=== PATIENT | female | born 1970 | race Caucasian/White ===

== ENCOUNTER → 2019-06-01 11:02 | Outpatient (CLI) | payer OTHER, SELFPAY ==
--- NOTE | ~2019-06-01 | MM_ITS ---
EXAMINATION: MM screening [facility] BI w kia HISTORY: Screening mammogram TECHNIQUE: Craniocaudal and mediolateral oblique 3-D tomosynthesis images were obtained and synthetic 2-D images were generated. CAD analysis was submitted and interpreted. COMPARISON: 12/30/2017, 04/27/2014 BREAST PARENCHYMAL COMPOSITION: The breasts are heterogeneously dense, which may obscure small masses . FINDINGS: There is no evidence of suspicious mass, calcification, or architectural distortion to sugg est malignancy in either breast. There has been no suspicious interval change. IMPRESSION: 1. No mammographic evidence of malignancy. 2. Recommend routine screening mammography in one year. BI-RADS Category 1: Negative Reviewed, dictated and finalized at location A. PRESIDENT OF DEVELOPMENT
== END ==
PROVIDERS: PCP Nurse Practitioner Family; Visit Provider Nurse Practitioner Family
DX: Z12.31 Encounter for screening mammogram for malignant neoplasm of breast (principal)
CPT/HCPCS: 77063; 77067

== ENCOUNTER → 2019-07-13 12:51 | Outpatient (CLI) | payer OTHER, SELFPAY ==
--- NOTE | ~2019-07-13 | US_ITS ---
EXAMINATION: US pelvic complete EXAM DATE: 07/13/2019 13:16 INDICATION: Abnormal uterine bleeding, spotting. TECHNIQUE: Pelvic transabdominal sonogram was performed. There are multiple grayscale and Doppler im ages available for interpretation. There is no prior study for comparison. FINDINGS: Uterus measures 7.7 x 4.2 x 4.5 cm, and is morphologically normal. The endometrial stripe is 10 mm as estimated transabdominally, which is considered abnormally thickened for postmenopausal s tatus. Histologic correlation would be appropriate. There is no free pelvic fluid. Right adnexa: The ovary measures 2.4 x 1.8 x 2.3 cm and is morphologically normal. Ovarian vascular f low confirmed. Left adnexa: The ovary measures 1.6 x 1.2 x 1.6 cm and is morphologically normal. Ovarian vascular fl ow confirmed. IMPRESSION: Thickened endometrium for postmenopausal status, differential diagnosis including hyperpl lianna, cancer. Recommend SUMMONS SERVER consult for possible histologic correlation. Reviewed, dictated and finalized at location A. IMPRESSION: Thickened endometrium for postmenopausal status, differential diagn osis including hyperplasia, cancer. Recommend SUMMONS SERVER consult for possible histolog ic correlation.
== END ==
PROVIDERS: PCP Family Medicine; Visit Provider Family Medicine
DX: N93.9 Abnormal uterine and vaginal bleeding, unspecified (principal); R93.89 Abnormal findings on diagnostic imaging of other specified body structures
CPT/HCPCS: 76856

== ENCOUNTER 2019-09-10 10:02 | Outpatient (CLI) | payer OTHER, SELFPAY ==
--- NOTE | ~2019-09-10 | US_ITS ---
EXAMINATION: US pelvic complete w TV DATE: 09/10/2019 10:30 INDICATION: Abnormal uterine and vaginal bleeding, unspecified. Postmenopausal. TECHNIQUE: Multiple transabdominal and transvaginal sonographic images of the pelvis were obtained. COMPARISON: Ultrasound 07/13/2019 FINDINGS: TRANSABDOMINAL ULTRASOUND: The uterus measures 5.8 x 3.2 x 3.5 cm. There is no free fluid in the pelvis. TRANSVAGINAL ULTRASOUND: The endometrial complex measures 7 mm in thickness. The ovaries are not visualized. IMPRESSION: 1. Abnormally thickened endometrial complex. The differential diagnosis includes endometrial hyperpla liliane, polyp, and carcinoma. Biopsy is recommended. Reviewed, dictated and finalized at location A. IMPRESSION: 1. Abnormally thickened endometrial complex. The differential diagnosis include s endometrial hyperplasia, polyp, and carcinoma. Biopsy is recommended.
== END 2019-09-10 10:03 | disposition home or self-care (01) ==
PROVIDERS: PCP Family Medicine; Visit Provider Family Medicine
DX: N93.9 Abnormal uterine and vaginal bleeding, unspecified (principal)
CPT/HCPCS: 76830; 76856

== ENCOUNTER → 2019-12-07 10:35 | Outpatient (CLI) | payer OTHER, SELFPAY ==
--- NOTE | ~2019-12-07 | US_ITS ---
EXAMINATION: US transvaginal DATE: 12/07/2019 11:04 INDICATION: Postmenopausal bleeding Comparison:Ultrasound dated 09/10/2019 TECHNIQUE: Multiple transabdominal and endovaginal sonographic images of the pelvis performed. FINDINGS: The uterus measures 5.7 x 3.3 x 3.2 cm. The endometrial complex measures 2.6 mm. There is a 3 mm calcification of the myometrium. The right ovary measures 1.5 x 0.8 x 1.1 cm and the left ovary measures 1 x 0.8 x 1.1 cm. There are small follicles in each ovary. There is no free fluid in the pelvis. There are no abnormal masses seen on either side. IMPRESSION: 1. Unremarkable pelvic ultrasound. No evidence for endometrial thickening. Reviewed, dictated and finalized at location A.
== END ==
PROVIDERS: PCP Family Medicine; Visit Provider Family Medicine
DX: N95.0 Postmenopausal bleeding (principal)
CPT/HCPCS: 76830

== ENCOUNTER → 2020-06-07 12:33 | Outpatient (CLI) | payer OTHER, SELFPAY ==
--- NOTE | ~2020-06-07 | MM_ITS ---
EXAMINATION: MM screening [facility] BI w kia HISTORY: Screening mammogram TECHNIQUE: Craniocaudal and mediolateral oblique 3-D tomosynthesis images were obtained and synthetic 2-D images were generated. CAD analysis was submitted and interpreted. COMPARISON: Prior mammograms dating back to 08/14/2006 BREAST PARENCHYMAL COMPOSITION: The breasts are heterogeneously dense, which may obscure small masses . FINDINGS: There is no evidence of suspicious mass, calcification, or architectural distortion to sugg est malignancy in either breast. There has been no suspicious interval change. IMPRESSION: 1. No mammographic evidence of malignancy. 2. Recommend routine screening mammography in one year. BI-RADS Category 1: Negative Reviewed, dictated and finalized at location A. NING AND DEVELOPMENT COORDINATOR
== END ==
PROVIDERS: PCP Family Medicine; Visit Provider Obstetrics & Gynecology
DX: Z12.31 Encounter for screening mammogram for malignant neoplasm of breast (principal)
CPT/HCPCS: 77063; 77067

== ENCOUNTER → 2021-07-31 11:36 | Outpatient (CLI) | payer OTHER, SELFPAY ==
--- NOTE | ~2021-07-31 | MM_ITS ---
EXAMINATION: MM screening [facility] BI w kia HISTORY: Screening mammogram TECHNIQUE: Craniocaudal and mediolateral oblique 3-D tomosynthesis images were obtained and synthetic 2-D images were generated. CAD analysis was submitted and interpreted. COMPARISON: June 07, 2020, June 01, 2019 bilateral screening mammogram examinations BREAST PARENCHYMAL COMPOSITION: There are scattered areas of fibroglandular density. FINDINGS: Stable mild fibroglandular asymmetry. There is no evidence of suspicious mass, calcificatio n, or architectural distortion to suggest malignancy in either breast. There has been no suspicious i nterval change. IMPRESSION: 1. No mammographic evidence of malignancy. 2. Recommend routine screening mammography in one year. BI-RADS Category 2: Benign finding(s). Reviewed, dictated and finalized at location A.
== END ==
PROVIDERS: PCP Family Medicine; Visit Provider Family Medicine
DX: Z12.31 Encounter for screening mammogram for malignant neoplasm of breast (principal)
CPT/HCPCS: 77063; 77067

== ENCOUNTER → 2022-03-19 11:13 | Outpatient (CLI) | payer OTHER, SELFPAY ==
--- NOTE | ~2022-03-19 | DEXA_ITS ---
Bone Density Report Name: ALPESH PEREZ Age: 51 Sex: Female Ethnicity: White Date of : 1970 Indication: postmenopausal; screening for osteoporosis; height loss; Referring Provider: DRE PEREZ Study: Bone densitometry was performed. Exam Date: March 19, 2022 Accession number: [id number] Bone Density: Region BMD T-score Z-score Classification AP Spine (L1-L4) 0.680 -3.3 -2.4 Osteoporosis Femoral Neck (Left) 0.549 -2.7 -1.8 Osteoporosis Total Hip (Left) 0.662 -2.3 -1.7 Osteopenia Femoral Neck (Right) 0.539 -2.8 -1.8 Osteoporosis Total Hip (Right) 0.613 -2.7 -2.1 Osteoporosis Total Hip Mean 0.638 -2.5 -1.9 Osteoporosis World Health Organization criteria for BMD impression classify patients as: Normal (T-score at or above -1.0), Osteopenia (T-score between -1.0 and -2.5), or Osteoporosis (T-score at or below -2.5). 10-year Fracture Risk: FRAX not reported because: Some T-score for Spine Total or Hip Total or Femoral Neck at or below -2.5 Clinical Information Provided by Patient: Has 3 or more alcoholic drinks per day Has used the following medications: Vitamin D, MTV Patient maximum height was 65 Menopause Age: 46 No regular weight bearing exercise Drinks caffeinated beverages Onset of menses at age 10.5 Number of children 1 Impression: The patient has osteoporosis, based on the Total Spine T-score. The patient has risk factors, including: excessive alcohol use. Discussion: HIGH RISK OF FRACTURE. BONE DENSITY IS UNDESIRABLY LOW AT ONE OR MORE SKELETAL SITES, CONSISTENT WITH OSTEOPOROSIS. ALSO, BONE DENSITY IS LOWER THAN EXPECTED FOR AGE AND SEX AT ONE OR MORE SKELETAL SITES; RECOMMEND A DILIGENT SEARCH FOR SECONDARY CAUSES OF BONE LOSS. This patient's lowest T-score meets the World Health Organization's (WHO) criteria for osteoporosis at one or more sites (T-score -2.5 or below). In untreated patients, the risk of osteoporotic fracture increases approximately two-fold for each 1.0 SD decrease in T-score. Low bone density is not the only risk factor for fracture; also consider factors such as patient's age, frailty or poor health, risk of falling, risk of injury, previous osteoporotic fracture, family history of osteoporosis, cigarette smoking, low body weight, etc. Not everyone with low bone mineral density has osteoporosis; osteomalacia and other metabolic bone disorders should also be considered. Patients who have osteoporosis should be evaluated for specific diseases and conditions (secondary causes) that may cause or contribute to bone loss. The [place] Association of Clinical Endocrinologists (AACE) and National Osteoporosis Foundation (NOF) recommend pharmacologic intervention for all postmenopausal women whose T-score is in this range. Also, this patient's bone mineral density is belo
== END ==
PROVIDERS: PCP Family Medicine; Visit Provider Family Medicine
DX: Z78.0 Asymptomatic menopausal state (principal); M81.0 Age-related osteoporosis without current pathological fracture; M85.852 Other specified disorders of bone density and structure, left thigh
CPT/HCPCS: 77080

== ENCOUNTER → 2022-04-11 14:28 | Outpatient (CLI) | payer OTHER, SELFPAY ==
--- NOTE | ~2022-04-11 | CT_ITS ---
EXAMINATION: CT lung screening DATE: 04/11/2022 14:46 INDICATION: Lung cancer screening. Risk factor of tobacco use. TECHNIQUE: Computed tomography (CT) of the chest was performed without intravenous contrast. Addition al 3D reconstructions utilizing coronal maximum intensity projection (MIP) were performed. Automated exposure control and iterative reconstruction technique were employed. The dose-length product was 61 .46 mGy-cm. COMPARISON: None FINDINGS: Mild emphysema. A a few 2-3 mm nodules in the left upper lobe on series 4, image 29, right upper lobe on image 42 & 43 and in the left lower lobe on image 67. Mild discoid atelectasis at the inferior li ngula. No pneumonia, pulmonary edema or pleural effusion. Heart size is normal. Atherosclerotic coron alec artery calcific location. Thoracic aorta is normal in caliber. No pathologically enlarged thoraci c lymphadenopathy. Visualized upper abdomen and bones are unremarkable. IMPRESSION: 1. Lung-RADS category 2: Benign appearance or behavior. Continue annual screening with noncontrast lo w-dose chest CT in 12 months. Reviewed, dictated and finalized at location A. TECHNICIAN IMPRESSION: 1. Lung-RADS category 2: Benign appearance or behavior. Continue annual screeni ng with noncontrast low-dose chest CT in 12 months.
== END ==
PROVIDERS: PCP Family Medicine; Visit Provider Family Medicine
DX: Z12.2 Encounter for screening for malignant neoplasm of respiratory organs (principal); Z87.891 Personal history of nicotine dependence
CPT/HCPCS: 71271

== ENCOUNTER → 2022-06-19 11:45 | Outpatient (CLI) | payer OTHER, SELFPAY ==
--- NOTE | ~2022-06-19 | XR_ITS ---
XR_CERV2-3V_CR DATE: 06/19/2022 12:05 INDICATION: Left neck pain. No injury. TECHNIQUE: AP, open-mouth, lateral views COMPARISON: None FINDINGS: There is straightening of the cervical spine which may be due to muscle spasm. C1 and C2 ar e normally aligned and the odontoid process is intact. No fracture or dislocation or locked facet or prevertebral soft tissue swelling. Cervical interspaces are well preserved. Left neck calcifications likely involving the carotid bulb and proximal left internal carotid artery. IMPRESSION: Straightening of the cervical spine which may be due to muscle spasm Reviewed, dictated and finalized at Location A. Reviewed, dictated and finalized at location B. RONMENTAL SERVICES FLOOR TECH IMPRESSION: Straightening of the cervical spine which may be due to muscle spas m
--- NOTE | ~2022-06-19 | XR_ITS ---
XR shoulder LT min 2V DATE: 06/19/2022 12:05 INDICATION: Left shoulder pain. No injury. TECHNIQUE: 4 views COMPARISON: None FINDINGS: Aortic arch calcification is noted. Osteopenia. No fracture or dislocation, periosteal reaction or bone destruction of the left shoulder. Normal alig nment of the left acromioclavicular and glenohumeral joints. No abnormal left shoulder soft tissue ca lcification. IMPRESSION: Osteopenia Reviewed, dictated and finalized at location B. ER SERVICES REPRESENTATIVE IMPRESSION: Osteopenia
== END ==
PROVIDERS: PCP Family Medicine; Visit Provider Nurse Practitioner Gerontology
DX: M54.2 Cervicalgia (principal); M85.812 Other specified disorders of bone density and structure, left shoulder
CPT/HCPCS: 72040; 73030

== ENCOUNTER 2022-07-29 08:36 | Outpatient (CLI) | payer OTHER, SELFPAY ==
--- NOTE | 2022-07-29 08:38 | EST_ITS ---
Patient Info Name: Ирина Craft Age: 51 years : 1970 Gender: Female Ht: 66 in Wt: 145 lbs BSA: 1.76 m2 HR: 67 bpm BP: 155 / 83 mmHg Heart Rhythm: Sinus Rhythm Exam Date: 07/29/2022 8:47 AM Exam Location: [facility] Stress Patient Status: Outpatient Admit Date: 07/29/2022 Staff Ordering Physician: Justina Gonzalez NP Attending Provider: Justina Gonzalez NP Exercise Technologist: Sussy Bob CT Exercise Physician: Elder Brooks DO Exam Type: CA stress test treadmill Study Info Indications R53.83 - Other fatigue R06.02 - Shortness of breath A treadmill exercise stress test was performed. Summary 1. 1. Negative Fabrizio exercise stress test for ischemic ST changes by ECG criteria. 2. 2. Reduced functional capacity, achieving 7 METs of workload. 3. 3. Baseline hypertension with hypertensive response to exercise. 4. 4. Appropriate HR response to exercise. 5. 5. Appropriate HR recovery at 1 minute post exercise. 6. 6. No imaging with stress testing. 7. 7. Patient informed of the above results. Protocol: Fabrizio Stress ECG Details Stage: REST Duration (min): 1 min : 15 sec Speed (mph): 0.0 Grade (%): 0 HR (bpm): 63 SBP (mmHg): 155 DBP (mmHg): 83 METS: --- Stage: REST Duration (min): 9 min : 19 sec Speed (mph): 0.0 Grade (%): 0 HR (bpm): 71 SBP (mmHg): 155 DBP (mmHg): 83 METS: --- Stage: STAGE 1 Duration (min): 1 min : 0 sec Speed (mph): 1.7 Grade (%): 10 HR (bpm): 94 SBP (mmHg): 155 DBP (mmHg): 83 METS: --- Stage: STAGE 1 Duration (min): 2 min : 0 sec Speed (mph): 1.7 Grade (%): 10 HR (bpm): 104 SBP (mmHg): 155 DBP (mmHg): 83 METS: --- Stage: STAGE 1 Duration (min): 3 min : 0 sec Speed (mph): 1.7 Grade (%): 10 HR (bpm): 116 SBP (mmHg): 207 DBP (mmHg): 95 METS: --- Stage: STAGE 2 Duration (min): 1 min : 0 sec Speed (mph): 2.5 Grade (%): 12 HR (bpm): 124 SBP (mmHg): 207 DBP (mmHg): 95 METS: --- Stage: STAGE 2 Duration (min): 2 min : 0 sec Speed (mph): 2.5 Grade (%): 12 HR (bpm): 137 SBP (mmHg): 231 DBP (mmHg): 107 METS: --- Stage: STAGE 2 Duration (min): 2 min : 20 sec Speed (mph): 2.5 Grade (%): 12 HR (bpm): 144 SBP (mmHg): 231 DBP (mmHg): 107 METS: --- Stage: RECOVERY Duration (min): 0 min : 39 sec Speed (mph): 0.0 Grade (%): 0 HR (bpm): 133 SBP (mmHg): 231 DBP (mmHg): 107 METS: --- Stage: RECOVERY Duration (min): 1 min : 39 sec Speed (mph): 0.0 Grade (%): 0 HR (bpm): 110 SBP (mmHg): 231 DBP (mmHg): 107 METS: --- Stage: RECOVERY Duration (min): 2 min : 39 sec Speed (mph): 0.0 Grade (%): 0 HR (bpm): 89 SBP (mmHg): 234 DBP (mmHg): 108 METS: --- Stage: RECOVERY Duration (min): 3 min : 39 sec Speed (mph): 0.0 Grade (%):
--- NOTE | 2022-07-31 12:14 | WPDPFTINT ---
PFT Procedure Performed PFT Procedure Performed Plethysmography (Lung Vol) Diffusing Cap (DLCO) Flow Vol Loop Spirometry w/o Bronchodil PFT Interpretation DOS: 07/29/2022 REQUESTING: Justina Gonzalez NP REASON FOR TESTING: Shortness of breath PULMONARY FUNCTION TESTS Results are reliable and reproducible. Spirometry: FEV1 is 1.09 L, 38% predicted, severely reduced. FVC is 2.09 L, 57%, moderately reduced. FEV1/FVC ratio is 52%, reduced, consistent with airflow obstruction. No bronchodilator was administered. Lung volumes: Total lung capacity 5.79 L, 108% predicted, normal. Residual volume 3.15 L, 161% severely increased consistent with air trapping. Airway resistance 6.73pzF65/L/sec, 505%, elevated. Diffusion: DLCO 11.5, 50%, moderately decreased. DLCO/VA is 3.31, 74%, normal. Flow volume loop: Severe scooping of the expiratory limb. IMPRESSION: This study shows extremely severe obstructive ventilatory impairment with severe air trapping and moderate diffusion impairment that corrects for alveolar volume. No bronchodilator was administered. No prior studies for comparison. Felicia Mirza MD
== END 2022-07-29 08:37 | disposition home or self-care (01) ==
LOC: ANHCARD 08:37
PROVIDERS: PCP Family Medicine; Visit Provider Nurse Practitioner Gerontology
DX: R06.02 Shortness of breath (principal); J43.9 Emphysema, unspecified; R73.01 Impaired fasting glucose; R53.83 Other fatigue; E78.2 Mixed hyperlipidemia
CPT/HCPCS: 93017; 94375; 94726; 94729

== ENCOUNTER 2022-09-19 12:32 | Outpatient (CLI) | payer OTHER, SELFPAY ==
--- NOTE | 2022-09-19 16:58 | WPDSIXMINUTE ---
Six Minute Walk Procedure Procedure Performed Pulmonary Stress Test (6 min walk) Six Minute Walk Six Minute Walk: This is a 6 minute walk test. The test was performed and interpreted in accordance with the 2014 ERS/ATS task force guidelines. Findings: The patient's resting room air oxygen saturation measured by pulse oximetry was 97% and heart rate was 69 bpm. Patient ambulated for 427 meters and oxygen saturation remained 94 to 96%. Heart rate at the end of the study was 91 bpm. The patient did not qualify for supplemental oxygen at rest or with ambulation. There are no prior studies for comparison.
--- NOTE | 2022-09-19 16:59 | P.PCNPFT_ITS ---
PFT Procedure Performed PFT Procedure Performed Spirometry with Pre/Post Bronchodilator Flow Vol Loop PFT Interpretation This is a pulmonary function test with pre and post-bronchodilator spirometry. The test was performed and results interpreted in accordance with the 2019 and 2005 ATS/ERS Task Force guidelines respectively using the Global Lung Function Initiative-2012 reference equations. Patient demonstrated good effort and cooperation. Reproducibility criteria were met. The quality of the pre bron chodilator spirometry maneuver was Grade A and post bronchodilator spirometry maneuver was Grade A. Findings: Spirometry: There is decreased maximal expiratory airflow at all lung volumes with concave expiratory flow tracing. The pre bronchodilator FVC is 3.29 L, 90% predicted. The pre bronchodilator FEV1 is 1.46 L, 51% predicted. The pre bronchodilator FEV1: FVC ratio is 44%. The post bronchodilator FVC is 3.36 L, representing a 2% increase. The post bronchodilator FEV1 is 1.51 L, representing a 4% increase. The post bronchodilator FEV1: FVC ratio is 45%. In comparison to previous pulmonary function testing on 07/29/2022 in which only pre bronchodilator spirometry was performed the pre bronchodilator FVC has increased from 2.09 L to 3.29 L. the pre bronchodilator FEV1 has increased from 1.09 L to 1.46 L. Impression: There is a moderately severe obstructive abnormality without significant improvement after inhaling a single dose of albuterol. A concurrent restrictive ventilatory abnormality cannot be excluded as lung volumes were not measured. In comparison to previous pulmonary function testing on 07/29/2022 there has been a greater than anticipated time dependent increase in the FVC and FEV1. Clinical correlation is recommended.
== END 2022-09-19 12:33 | disposition home or self-care (01) ==
PROVIDERS: PCP Family Medicine; Visit Provider Internal Medicine Pulmonary Disease
DX: J44.9 Chronic obstructive pulmonary disease, unspecified (principal); Z87.891 Personal history of nicotine dependence; R94.2 Abnormal results of pulmonary function studies
CPT/HCPCS: 94060; 94618

== ENCOUNTER → 2022-10-17 15:18 | Outpatient (CLI) | payer OTHER, SELFPAY ==
--- NOTE | ~2022-10-17 | MM_ITS ---
EXAMINATION: MM screening [facility] BI w kia HISTORY: Screening mammogram TECHNIQUE: Craniocaudal and mediolateral oblique 3-D tomosynthesis images were obtained and synthetic 2-D images were generated. CAD analysis was submitted and interpreted. COMPARISON: 07/31/2021, 06/07/2020, 06/01/2019 BREAST PARENCHYMAL COMPOSITION: The breasts are heterogeneously dense, which may obscure small masses . FINDINGS: No suspicious mass, calcification, or architectural distortion are identified in either timmy ast to suggest malignancy. There has been no suspicious interval change. IMPRESSION: 1. No mammographic evidence of malignancy. 2. Recommend routine screening mammography in one year. BI-RADS Category 1: Negative Reviewed, dictated and finalized at location A.
== END ==
PROVIDERS: PCP Family Medicine; Visit Provider Family Medicine
DX: Z12.31 Encounter for screening mammogram for malignant neoplasm of breast (principal)
CPT/HCPCS: 77063; 77067

== ENCOUNTER 2022-11-11 09:20 | Observation (INO) | payer OTHER, SELFPAY ==
[2022-11-11] VITALS (11 sets, daily range): BP systolic 110–139; BP diastolic 65–77; PULSE 63–83; RESP 10–28; TEMP 36.5–36.6; O2SAT 95–100
--- NOTE | 2022-11-11 | ECHO_ITS ---
Patient Info Name: Ирина Craft Age: 52 years : 1970 Gender: Female Ht: 66 in Wt: 141 lbs BSA: 1.73 m2 HR: 68 bpm BP: 130 / 69 mmHg Heart Rhythm: Sinus Rhythm Technical Quality: Fair Exam Date: 11/11/2022 4:16 PM Exam Location: [facility] Pulmonary Exam Room: [facility] Patient Status: Outpatient Admit Date: 11/11/2022 Staff Ordering Physician: Ama Stark NP Court Abstractor: Blessing Frederick RDCS Attending Provider: Gui Lock MD Referring Physician: Lincoln TOTH; Exam Type: CA echo doppler w bubble study Study Info Indications - TIA Complete two-dimensional, color flow and Doppler transthoracic echocardiogram is performed with agitated saline. Contrast/Agitated Saline Contrast/Ag. Saline: Agitated Saline Amount: 20.00 ml Existing IV Access: Yes IV Access Condition: patent with no signs of infiltration Summary 1. Normal left ventricular size thickness with good contractility of all segments. Ejection fraction 60-65%. Normal diastolic function. 2. Left atrial chamber dimension is mildly enlarged. 3. No evidence of intracardiac shunting during normal respiration and Valsalva maneuver with bubble study. 4. No significant valve disease. 5. No pulmonary hypertension, estimated pulmonary arterial systolic pressure is 30 mmHg. 6. Normal sinus rhythm. Left Ventricle Left ventricular chamber dimension is normal. Left ventricular systolic function is normal, estimated at 60-65%. There is no increased left ventricular wall thickness. Left ventricular septal wall motion is normal. The left ventricular diastolic function is normal. Right Ventricle Right ventricular chamber dimension is normal. Right ventricular systolic function is normal. Left Atria Left atrial chamber dimension is mildly enlarged. Right Atria Right atrial chamber dimension is normal. Aortic Valve The aortic valve is trileaflet. There is no aortic valve sclerosis. There is no aortic valve stenosis. There is no aortic valve regurgitation. Pulmonic Valve The pulmonic valve is normal. There is no pulmonic valve stenosis. There is no pulmonic regurgitation. Mitral Valve The mitral valve has normal leaflets. There is no mitral valve stenosis. There is trace mitral valve regurgitation. Tricuspid Valve The tricuspid valve leaflets are normal. There is no significant tricuspid valve stenosis. There is trace tricuspid valve regurgitation. No pulmonary hypertension, estimated pulmonary arterial systolic pressure is 30 mmHg. Pericardium/Pleural The pericardium appears normal. There is no pericardial effusion. Inferior Vena Cava Normal inferior vena cava with >50% collapse upon inspiration consistent with Empty right atrial pressure, 10 mmHg. Aorta The aortic root size at the sinus of Valsalva is normal. The prox ascending aorta size is normal. Left Ventricular Outflow Tract Name Value Normal LVOT 2D LVOT Diameter 2.0 cm LVOT Doppler LVOT Peak Gradient 4 mmHg LVOT Mean Gradient 2 mmHg LVOT VTI 25 cm LVOT VTI/AV VTI Ratio 1.0
--- NOTE | ~2022-11-11 | XR_ITS ---
EXAMINATION: XR chest 1V DATE: 11/11/2022 10:12 INDICATION: Shortness of breath. TECHNIQUE: A single frontal view of the chest was obtained. COMPARISON: Chest 2 views 09/03/2018, chest CT 04/11/2022 FINDINGS: The lungs are hyperexpanded with lucencies, consistent with emphysema. No pneumonia, pleura l effusion, or pneumothorax. The heart size is normal. There are prominent paracardial fat pads. IMPRESSION: 1. Emphysema. Reviewed, dictated and finalized at location A. IMPRESSION: 1. Emphysema.
--- NOTE | ~2022-11-11 | CT_ITS ---
EXAMINATION: CT brain wo con DATE: 11/11/2022 10:08 INDICATION: Left arm paresthesias TECHNIQUE: Computed tomography (CT) of the head was performed without intravenous contrast. Sagittal and coronal reconstructions were performed. The mA was adjusted according to patient size. Iterative reconstruction technique was employed. The dose-length product was 529.67 mGy-cm. COMPARISON: head CT dated 04/27/2007 FINDINGS: No acute intracranial hemorrhage, acute infarction or abnormal extra axial fluid collection. Ventricl es are normal and symmetric. No mass/mass effect. There is opacification of the posterior right ethmo id air cell. The orbits and mastoid air cells are normal. IMPRESSION: 1. Normal brain. No acute intracranial process. Reviewed, dictated and finalized at location B.
--- NOTE | ~2022-11-11 | MR_ITS ---
EXAMINATION: MR brain/brain stem wo con DATE: 11/12/2022 08:16 INDICATION: Left upper extremity paresthesias. TECHNIQUE: Magnetic resonance imaging (MRI) of the brain and brainstem was performed without intraven ous contrast. COMPARISON: Head CT 11/11/2022 FINDINGS: There are scattered areas of nonspecific increased T2-weighted signal intensity in the cere bral white matter. There is no intracranial hemorrhage, acute infarction, or abnormal intracranial ma ss lesion. The ventricles are normal in size. 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 Th ere is mild mucosal thickening in the ethmoid sinuses. The orbits are normal. The mastoid air cells a re normal. IMPRESSION: 1. Mild nonspecific cerebral white matter disease, which likely represents chronic small vessel ische lucas disease. Reviewed, dictated and finalized at location A. IMPRESSION: 1. Mild nonspecific cerebral white matter disease, which likely represents punch machine hand luciano small vessel ischemic disease.
--- NOTE | ~2022-11-11 | MR_ITS ---
EXAMINATION: MR cervical spine wo/w con DATE: 11/12/2022 08:16 INDICATION: Left upper extremity paresthesias. TECHNIQUE: Magnetic resonance imaging (MRI) of the cervical spine was performed without intravenous c ontrast. Sequences included sagittal T2-weighted FSE, sagittal T2-weighted FS FSE, sagittal T1-weight ed FSE, axial MERGE, and axial T2-weighted FSE. COMPARISON: None FINDINGS: Bone alignment is normal. Vertebral body heights and intervertebral disc heights are normal . The spinal cord signal intensity is normal. The following disc levels are specifically discussed: C2-C3: The disc does not extend beyond the endplate margin. There is no uncovertebral joint osteoarth ritis. There is severe bilateral facet joint osteoarthritis. There is mild right neural foraminal beatrice nosis. There is no central canal stenosis. C3-C4: The disc does not extend beyond the endplate margin. There is mild left uncovertebral joint os teoarthritis. There is severe left facet joint osteoarthritis. There is no neural foraminal stenosis. There is no central canal stenosis. C4-C5: There is a central protrusion. There is no uncovertebral joint osteoarthritis. There is modera te right and severe left facet joint osteoarthritis. There is mild left neural foraminal stenosis. Th ere is no central canal stenosis. C5-C6: There is a central protrusion. There is mild bilateral uncovertebral joint osteoarthritis. The re is moderate right and severe left facet joint osteoarthritis. There is mild bilateral neural jannette inal stenosis. There is no central canal stenosis. C6-C7: There is a left central protrusion. There is mild left uncovertebral joint osteoarthritis. The re is moderate right and severe left facet joint osteoarthritis. There is mild left neural foraminal stenosis. There is no central canal stenosis. C7-T1: The disc does not extend beyond the endplate margin. There is severe bilateral uncovertebral j oint osteoarthritis. There is mild bilateral facet joint osteoarthritis. There is no neural foraminal stenosis. There is no central canal stenosis. IMPRESSION: 1. Mild cervical spondylosis. 2. Normal spinal cord. Reviewed, dictated and finalized at location A.
--- NOTE | ~2022-11-11 | US_ITS ---
Procedure: Duplex Doppler examination of the bilateral carotids. Indication: TIA Technique: Real time, color-flow and pulse wave Doppler examination of the bilateral carotids was performed. Findings: Patiño scale ultrasonography of the right neck demonstrated moderate calcified plaque at the mid to dis mary right common carotid artery. There was demonstration of normal color-flow and Doppler waveforms w ithin the right common, internal and external carotid arteries. The peak systolic velocities in the r ight common, internal and external carotid arteries were demonstrated to be 112 cm/sec, 94 cm/sec and 121 cm/sec respectively. The right ICA/CCA ratio was 0.8.The proximal right internal carotid artery demonstrates 0% stenosis relative to the normal distal artery lumen diameter. Patiño scale sonography of the left neck demonstrated extensive moderate plaques throughout the mid to distal left common carotid artery, with moderate to large plaques at the left carotid bulb and proxim al left internal carotid artery.. There was demonstration of normal color-flow and wave forms within the left common, internal and external carotid arteries. The peak systolic velocities in the left com mon, internal and external carotid arteries were demonstrated to be 118cm/sec, 172 cm/sec and 209 cm/ sec respectively. The left ICA/CCA ratio was 1.5. The proximal left internal carotid artery demonstra petros 50-69% stenosis relative to the normal distal artery lumen diameter. There was antegrade flow demonstrated in the bilateral vertebral arteries. Impression: Moderate grade (50-69%) stenosis of the proximal left internal carotid artery. Antegrade flow in the bilateral vertebral arteries. Note: The methodology used is an indirect measurement validated against a direct method (such as the NASCET criteria) that compares diameters at the stenosis to the distal ICA. Reviewed, dictated and finalized at location M. Impression: Moderate grade (50-69%) stenosis of the proximal left internal carotid artery. Antegrade flow in the bilateral vertebral arteries. Note: The methodology used is an indirect measurement validated against a direct meth od (such as the NASCET criteria) that compares diameters at the stenosis to the distal ICA.
--- NOTE | 2022-11-11 09:55 | PC.NURSE ---
Pt to xray.
--- NOTE | 2022-11-11 09:56 | ECG_ITS ---
Measurements Intervals [place] Rate: 60 P: 55 WV: 159 QRS: 61 QRSD: 80 T: 67 QT: 419 QTc: 421 Interpretive Statements SINUS RHYTHM RSR' IN V1 OR V2, PROBABLY NORMAL VARIANT BASELINE ARTIFACT- AVR, AVL, AVF NORMAL ECG NO PREVIOUS ECG AVAILABLE FOR COMPARISON Electronically Signed On 11-11-2022 11:22:26 CDT by Elder Brooks D.O.
--- NOTE | 2022-11-11 09:58 | ED.EXTPRO ---
HPI - Extremity Problem General Chief complaint: Extremity Problem,Nontraumatic <Dayana Yu PA-C - Last Filed: 11/11/22 18:50> Stated complaint: L ARM TINGLING THIS AM <Dayana Yu PA-C - Last Filed: 11/11/22 18:50> Time Seen by Provider: 11/11/22 09:42 <Dayana Yu PA-C - Last Filed: 11/11/22 18:50> History of Present Illness HPI Narrative: 52-year-old female with a history of COPD and left frozen shoulder reports for evaluation of left shoulder paresthesias since 7 AM this morning. Patient states she has tingling from her shoulder all the way down her entire left upper extremity with tingling to all of her fingers. States she has never had anything like this before and feels off . She does report she has recently been through PT for frozen shoulder of her left shoulder, however has not experienced the symptoms prior. She denies any pain in her shoulder, arm, neck, back, head. She is also reporting dyspnea, however states she was recently diagnosed with COPD which the dyspnea may be related to. She denies chest pain, cough or congestion, abdominal pain, weakness, skin changes, dysarthria or dysphagia, ataxia, dizziness, headache. <Dayana Yu PA-C - Last Filed: 11/11/22 18:50> Related Data Home medications: Home Medications Medication Instructions Recorded Confirmed atenolol 50 mg tablet 50 mg PO HS 11/11/22 11/11/22 atorvastatin 10 mg tablet 10 mg PO HS 11/11/22 11/11/22 nifedipine 30 mg tablet,extended 30 mg PO HS 11/11/22 11/11/22 release 24 hr omeprazole 40 mg capsule,delayed 40 mg PO HS 11/11/22 11/11/22 release <DUSTIN Box Last Filed: 11/11/22 18:50> Allergies/Adverse reactions: Allergies Allergy/AdvReac Type Severity Reaction Status Date / Time No Known Allergies Allergy Verified 11/11/22 09:52 <DUSTIN Box Last Filed: 11/11/22 18:50> Review of Systems Review of Systems: CONSTITUTIONAL: Denies fever, chills EYES: Denies visual changes, redness, or discharge. ENT: Denies rhinorrhea, congestion, sore throat, or otalgia. CARDIOVASCULAR: Denies chest pain, palpitations, or edema. RESPIRATORY: Denies cough or dyspnea. GASTROINTESTINAL: Denies abdominal pain, nausea, vomiting, or diarrhea. GENITOURINARY: Denies dysuria or hematuria. SKIN: Denies rash or itching. MUSCULOSKELETAL: Denies back pain, joint pain, or myalgia. NEUROLOGIC: See HPI PSYCHIATRIC: Denies anxiety or depression. <Dayana Yu PA-C - Last Filed: 11/11/22 18:50> [facility] Past Medical History Medical History: Medical History Abnormal endometrial ultrasound Annual physical exam Dysuria Encounter for vitamin deficiency screening Essential (primary) hypertension GERD with esophagitis HH (hiatus hernia) History of tobacco use Menopause syndrome Mixed hyperlipidemia Neck pain Pap smear for cervical cancer screening Postmenopausal Screening-pulmonary TB Shoulder pain Sty, internal Weight gain finding Wellness examination <Dayana Yu PA-C - Last Filed: 11/11/22 18:50> Surgical History Surgical History: Surgical History (Updated 11/11/22 @ 14:01 by Ama Stark NP) History of tonsillectomy and adenoidectomy <Dayana Yu PA-C - Last Filed: 11/11/22 18:50> Family History Family History: Family History Father Hypertension Family history of diabetes mellitus in first degree relative Family history of pancreatic disease Mother , unknown, possible heart disease Hypertension Family history of diabetes mellitus in first degree relative Family history of Alzheimer's disease, Onset Age: 65 Sibling Hypertension Family history of diabetes mellitus in first degree relative <Dayana Yu PA-C - Last Filed: 11/11/22 18:50> Social History Social History: Social
[2022-11-11 10:32] LABS: Basophils Absolute Auto 0.1 K/mm3 (0.0-0.1); Basophils Percent Auto 1.2 % (0.2-1.2); Eosinophils Absolute Auto 0.2 K/mm3 (0-0.3); Eosinophils Percent Auto 2.7 % (0-4.4); Hematocrit 44.3 % (37.0-47.0); Hemoglobin 14.7 g/dL (12.0-15.0); Immature Granulocyte Absolute 0.02 K/mm3 (0.00-0.031); Immature Granulocyte Percent A 0.3 % (0-0.5); Lymphocytes Percent Auto 23.9 % (18.3-44.2); Mean Corpuscular HGB Conc 33.2 g/dl (32-36); Mean Corpuscular Hemoglobin 29.8 pg (26-34); Mean Corpuscular Volume 89.7 fl (80-100); Monocytes Absolute Auto 0.6 K/mm3 (0.1-0.6); Monocytes Percent Auto 9.3 % (2.6-8.5); Neutrophils Absolute Auto 4.2 K/mm3 (1.3-6.7); Neutrophils Percent Auto 62.6 % (45.5-73.1); Platelet Count Result 298 k/mm3 (150-375); Red Blood Count 4.94 M/mm3 (4.2-5.4); Red Cell Distribution Width 12.9 % (11.5-14.5); White Blood Count 6.7 K/mm3 (4.5-10.0)
[2022-11-11 10:45] LABS: Alanine Aminotransferase 28 U/L (6-35); Albumin Level 4.6 g/dL (3.5-5.1); Alkaline Phosphatase 98 U/L (38-126); Anion Gap 8 mmol/L (8-16); Aspartate Amino Transferase 37 U/L (14-36); Bilirubin,Total 0.3 mg/dL (0.2-1.3); Blood Urea Nitrogen 11 mg/dL (7-17); Calcium 8.8 mg/dL (8.4-10.2); Carbon Dioxide 25 mmol/L (22-30); Chloride 104 mmol/L (98-107); Estimated Glomerular Filt Rate > 60; Glucose 111 mg/dL (65-110); Sodium 137 mmol/L (137-145)
[2022-11-11 10:46] LABS: INR 0.9; Prothrombin Time 12.3 Seconds (11.1-14.7)
[2022-11-11 10:47] LABS: Partial Thromboplastin Time 27.1 SECONDS (22.3-36.8)
[2022-11-11 10:55] LABS: Appearance Urine Clear (Clear); Bacteria Urine None Seen /hpf; Bilirubin Urine Negative (Negative); Blood Urine Negative (Negative); Color Urine Yellow (Yellow); Glucose Urine UA Negative (Negative); Ketones Urine Negative (Negative); Leukocyte Esterase Ur Trace LEU/UL (Negative); Nitrate Urine Negative (Negative); Non Pathogenic Casts 0-2; Protein Urine Negative (Negative); RBC Urine 0-2 /hpf (0-2); Specific Grav Ur 1.005 (1.001-1.035); Squamous Epithelial Cell Urine None seen /hpf (Few); Urobilinogen Urine 0.2 mg/dL (<2.0); WBC Urine 0-5 /hpf
[2022-11-11 10:56] LABS: Add Urine Microscopic? YES
[2022-11-11 10:57] LABS: Troponin I < 0.012 ng/mL (0.000-0.034)
[2022-11-11 11:02] LABS: D Dimer < 0.27 ug/mL (<0.48)
[2022-11-11] MEDS: ASPIRIN 81 MG CHEWABLE TABLET 324 MG PO (11:56)
--- NOTE | 2022-11-11 13:57 | PM.IMHP ---
H&P: HPI History of Present Illness Date/Time: 11/11/22 13:57 Chief Complaint: Left arm tingling Narrative: This is a 52-year-old female patient has had no prior history of TIAs or CVAs. She has a history of hypertension and hyperlipidemia. The patient stated when she woke up this morning she had felt like she had numbness and tingling to her left forearm. The tingling is from her left upper extremity and and set her finger tips. The patient has been through physical therapy in the past due to frozen shoulder. However she has not experienced anything to this degree in the past. She denies having any COPD. She denies taking any new medication. Patient is moving all extremities without difficulty no facial droop no pronator drifting. Patient has no complaints of any dizziness or headache. Glucose is 111. Troponin is negative. Urine is negative. Chest x-ray was read as emphysema. Head CT was read as normal brain no acute intracranial process. The patient stated that she is not taking any medication to help with the situation. The study that makes it worse or better. The patient stated feels as if she is late on that side in arm fell asleep. The patient is being admitted to observation status on the date of service of 11/11/2022 Review of Systems Review of Systems: All systems reviewed & are unremarkable except as noted in HPI and below Constitutional: Constitutional: Reports as per HPI and Reports no additional constitutional complaints Eyes: Eyes: Reports as per HPI and Reports no additional eye complaints ENT: Reports system reviewed and no additional complaints, except as documented and Reports Normal hearing present Cardiovascular: Cardiovascular: Reports no additional cardiovascular complaints Respiratory: Respiratory: Reports no additional respiratory complaints and Reports no additional respiratory complaints Gastrointestinal: Gastrointestinal: Reports as per HPI and Reports no additional gastrointestinal complaints Musculoskeletal: Musculoskeletal: Reports no additional musculoskeletal complaints Integumentary/Breasts: Skin/Breast: Reports system reviewed and no additional complaints, except as docu and Reports as per HPI Neurologic: Reports system reviewed and no additional complaints, except as documented, Reports as per HPI and Reports Normal hearing present Psychiatric: Psychiatric: Reports no additional psychiatric complaints and Reports as per HPI Endocrine: Endocrine: Reports no additional endocrine complaints Hematologic/Lymphatic: Hematologic/Lymphatic: Reports no additional hematologic/lymphatic complaints Allergic/Immunologic: Allergic/Immunologic: Reports no additional allergic/immunologic complaints [facility] Past Medical History Medical History Abnormal endometrial ultrasound Annual physical exam Dysuria Encounter for vitamin deficiency screening Essential (primary) hypertension GERD with esophagitis HH (hiatus hernia) History of tobacco use Menopause syndrome Mixed hyperlipidemia Neck pain Pap smear for cervical cancer screening Postmenopausal Screening-pulmonary TB Shoulder pain Sty, internal Weight gain finding Wellness examination Surgical History Surgical History (Updated 11/11/22 @ 14:01 by Ama Stark NP) History of tonsillectomy and adenoidectomy Family History Family History Father Hypertension Family history of diabetes mellitus in first degree relative Family history of pancreatic disease Mother , unknown, possible heart disease Hypertension Family history of diabetes mellitus in first degree relative Family history of Alzheimer's disease, Onset Age: 65 Sibling Hypertension Family history of diabetes mellitus in first degree relative Social History Social History (Updated 11/11/22 @ 17:00 by Ama Stark NP) Social History: She
--- NOTE | 2022-11-11 15:48 | ADMGEN ---
This patient, Ирина Craft, was admitted to [facility] Room 316-02. Patient/family oriented to hospital policies and general routines including ID bracelet, bed and alarms, visiting hours, pain management, procedures, bathroom and other care routines, personal items, smoking policy, room service/diet, and visiting hours. Information on how to activate the Rapid Response Team has been discussed. Patient/Family are encouraged to report perceived risks to care and to ask questions if they do not understand what they are told or what they should do.
[2022-11-11] MEDS: atenoloL 50 MG TABLET PO (21:28)
[2022-11-11] MEDS: PANTOPRAZOLE 40 MG TABLET PO (21:28)
[2022-11-11] MEDS: NIFEdipine 30 MG TAB.ER.24 PO (21:28)
[2022-11-11] MEDS: ATORVASTATIN 10 MG TABLET PO (21:29)
[2022-11-12 04:55] VITALS: BP 138/77; PULSE 61; RESP 14; TEMP 36.4; O2SAT 98
[2022-11-12 06:29] LABS: Basophils Absolute Auto 0.1 K/mm3 (0.0-0.1); Basophils Percent Auto 0.9 % (0.2-1.2); Eosinophils Absolute Auto 0.3 K/mm3 (0-0.3); Eosinophils Percent Auto 3.6 % (0-4.4); Hematocrit 43.4 % (37.0-47.0); Hemoglobin 13.9 g/dL (12.0-15.0); Immature Granulocyte Absolute 0.02 K/mm3 (0.00-0.031); Immature Granulocyte Percent A 0.3 % (0-0.5); Lymphocytes Absolute Auto 2.19 K/mm3 (0.9-3.2); Lymphocytes Percent Auto 31.4 % (18.3-44.2); Mean Corpuscular Volume 90.4 fl (80-100); Mean Platelet Volume 9.1 fl (7.4-10.4); Monocytes Absolute Auto 0.6 K/mm3 (0.1-0.6); Neutrophils Absolute Auto 3.8 K/mm3 (1.3-6.7); Neutrophils Percent Auto 54.8 % (45.5-73.1); Platelet Count Result 284 k/mm3 (150-375); Red Cell Distribution Width 12.7 % (11.5-14.5)
[2022-11-12 06:41] LABS: Alanine Aminotransferase 25 U/L (6-35); Alkaline Phosphatase 73 U/L (38-126); Anion Gap 4 mmol/L (8-16); Aspartate Amino Transferase 34 U/L (14-36); Bilirubin,Total 0.6 mg/dL (0.2-1.3); Blood Urea Nitrogen 8 mg/dL (7-17); Calcium 8.5 mg/dL (8.4-10.2); Carbon Dioxide 24 mmol/L (22-30); Chloride 105 mmol/L (98-107); Estimated Glomerular Filt Rate > 60; Glucose 98 mg/dL (65-110); Magnesium 2.2 mg/dL (1.6-2.3); Potassium 3.7 mmol/L (3.4-5.0); Sodium 133 mmol/L (137-145)
[2022-11-12] MEDS: LORazepam INJ (*CRX) 2 MG/ML VIAL 1 MG IV PUSH (07:16)
[2022-11-12 07:25] VITALS: PULSE 75; RESP 18; O2SAT 96
[2022-11-12] MEDS: UMECLIDINIUM/VILANTEROL 62.5-25 MCG ELLIPTA 2 PUFF INHALATION (07:25)
--- NOTE | 2022-11-12 08:46 | PM.IMPN ---
Progress Note: A&P Assessment and Plan (1) Paresthesia of upper extremity: Code(s): R20.2 - Paresthesia of skin Status: Acute Assessment and Plan: Neurology has been consulted. The patient has no focal weakness. Cervical spine MRI, MRI of the brain, carotid ultrasound and echo has been ordered. Neurology has been consulted. Continue with aspirin daily. 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 Continue with stiolto Respimat. (3) Mixed hyperlipidemia: Code(s): E78.2 - Mixed hyperlipidemia Status: Acute Assessment and Plan: Continue with atorvastatin (4) GERD with esophagitis: Code(s): K21.0 - Gastro-esophageal reflux disease with esophagitis Status: Acute Assessment and Plan: Continue with omeprazole (5) Essential (primary) hypertension: Code(s): I10 - Essential (primary) hypertension Status: Acute Assessment and Plan: Continue with nifedipine and atenolol. Current blood pressure 123/77. Subjective Date/time seen: 11/12/22 08:46 Interval history: Chief Complaint: Left arm tingling Narrative: This is a 52-year-old female patient has had no prior history of TIAs or CVAs.? She has a history of hypertension and hyperlipidemia.? The patient stated when she woke up this morning she had felt like she had numbness and tingling to her left forearm.? The tingling is from her left upper extremity and and set her finger tips.? The patient has been through physical therapy in the past due to frozen shoulder.? However she has not experienced anything to this degree in the past.? She denies having any COPD.? She denies taking any new medication.? Patient is moving all extremities without difficulty no facial droop no pronator drifting.? Patient has no complaints of any dizziness or headache.? Glucose is 111.? Troponin is negative.? Urine is negative.? Chest x-ray was read as emphysema.? Head CT was read as normal brain no acute intracranial process.? The patient stated that she is not taking any medication to help with the situation.? The study that makes it worse or better.? The patient stated feels as if she is late on that side in arm fell asleep.? The patient is being admitted to observation status on the date of service of 11/11/202211/12: patient seen resting in bed appears well. She had a difficult night overnight because of her roommate. She says that she has just minimal tingling to her left hand now. denies any other neuro symptoms. She is anxious to leave. clarifying with Neurology if CTA needs to be completed prior to discharge. She will need outpatient EMG nerve conduction study to rule out possible brachial plexopathy. Review of Systems Review of Systems: All systems reviewed & are unremarkable except as noted in HPI and below Exam Narrative: General: well-nourished, well-appearing 52-year-old female, sitting up in bed, comfortable, NARD Neuro: awake, alert and oriented x4, speech clear, no focal neuro deficits noted, tingling present to left hand but is resolving HEENMT: normocephalic, atraumatic, EOMI, sclerae anicteric, moist oral mucosa Respiratory: Clear to auscultation bilaterally without crackles, rhonchi or wheezes, nonlabored breathing Cardio: regular rate, regular rhythm with S1-S2 Abdomen: nondistended, normoactive bowel sounds, soft, nontender to palpation Extremities: no edema, erythema, or tenderness to palpation, DP pulses 2+ bilaterally Skin: no rashes or lesions, warm and dry Psych: appropriate mood and affect, judgment a
[2022-11-12] MEDS: ASPIRIN 81 MG ENTERIC TABLET PO (08:47)
--- NOTE | 2022-11-12 12:12 | WPDNEURCNPN ---
Assessment and Plan Assessment and plan (1) Paresthesia of left arm: Code(s): R20.2 - Paresthesia of skin Status: Acute (2) Plexopathy: Code(s): G54.9 - Nerve root and plexus disorder, unspecified Status: Acute Plan 1 paresthesia of the left upper extremity with history of physical therapy to the left shoulder for the adhesive capsulitis 2 concern about the TIA with MRI of the brain negative except the chronic small-vessel ischemic changes but Doppler study documenting 50 to 69% stenosis of proximal left internal carotid artery which is ipsilateral to the symptomatology again CTA will be obtained the brain and neck cervical MRI as mentioned above is negative for any spinal cord pathology or significant spondylosis will need the EMG nerve conduction study as an outpatient to rule out the possibility of brachial plexopathy Consult date: 11/12/22 HPI: Ирина Craft is a 52 year old female admitted to the hospital through the emergency room for the complaints of the left shoulder paresthesia going from the shoulder all the way down to her anti left upper extremity described as tingling sensation all over her fingers patient has recently gone through the physical therapy for the for the frozen left shoulder though at this time she gave no history of pain in her shoulder neck and back of the head she does carry the diagnosis of COPD. Patient has been taking atenolol 50 mg at night with atorvastatin 10 mg at night and nifedipine 30 mg at night as well she is not allergic to any medications. In the past she does have ongoing history of tobacco use mixed hyperlipidemia neck pain and shoulder pain in addition to the history of years smoked 30 though at present former smoker and currently alcohol intake 32 drinks per week her initial vital signs were stable. Tessa moseley in Urology was contacted by the ER personnel suggested to rule out the possibility of stroke. Initial lab was normal. He had MRI of cervical spine today which revealed cervical spondylosis with normal , brain MRI revealed nonspecific white matter changes and Doppler study of the carotid documented 50 to 69% stenosis of proximal left internal carotid artery which is ipsilateral. She is receiving atorvastatin 10 mg at night Review of Systems Review of Systems: All systems reviewed & are unremarkable except as noted in HPI and below [facility] Past Medical History Medical History Abnormal endometrial ultrasound Annual physical exam Dysuria Encounter for vitamin deficiency screening Essential (primary) hypertension GERD with esophagitis HH (hiatus hernia) History of tobacco use Menopause syndrome Mixed hyperlipidemia Neck pain Pap smear for cervical cancer screening Postmenopausal Screening-pulmonary TB Shoulder pain Sty, internal Weight gain finding Wellness examination Surgical History Surgical History (Updated 11/11/22 @ 14:01 by Ama Stark NP) History of tonsillectomy and adenoidectomy Family History Family History Father Hypertension Family history of diabetes mellitus in first degree relative Family history of pancreatic disease Mother , unknown, possible heart disease Hypertension Family history of diabetes mellitus in first degree relative Family history of Alzheimer's disease, Onset Age: 65 Sibling Hypertension Family history of diabetes mellitus in first degree relative Social History Social History (Updated 11/11/22 @ 17:00 by Ama Stark NP) Social History: She is and only had one son. she is currently unemployed . She is a former smoker. code status full code Smoking packs per day: 1 Smoking cigarettes per day: 20.0 Years smoked: 30 Smoking pack-years: 30.00 Smoking status: Former smoker Second hand tobacco smoke exposure: No Alcohol intake: current Drinks per week
[2022-11-12 14:00] VITALS: BP 126/72; PULSE 66; RESP 16; TEMP 36.6; O2SAT 95
--- NOTE | 2022-11-12 14:07 | PM.DS ---
DS: Admitting Diagnosis Discharge Date FridayNovember 12 Admitting Diagnosis TIA DS: Discharge Diagnosis Discharge Diagnosis (1) Paresthesia of upper extremity: Code(s): R20.2 - Paresthesia of skin Status: Acute Assessment and Plan: Neurology has been consulted. The patient has no focal weakness. Cervical spine MRI, MRI of the brain, carotid ultrasound and echo has been ordered. Neurology has been consulted. Continue with aspirin daily. 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 Continue with stiolto Respimat. (3) Mixed hyperlipidemia: Code(s): E78.2 - Mixed hyperlipidemia Status: Acute Assessment and Plan: Continue with atorvastatin (4) GERD with esophagitis: Code(s): K21.0 - Gastro-esophageal reflux disease with esophagitis Status: Acute Assessment and Plan: Continue with omeprazole (5) Essential (primary) hypertension: Code(s): I10 - Essential (primary) hypertension Status: Acute Assessment and Plan: Continue with nifedipine and atenolol. Current blood pressure 123/77. DS: Summary Hospital Course Hospital Course: Chief Complaint: Left arm tingling Narrative: This is a 52-year-old female patient has had no prior history of TIAs or CVAs.? She has a history of hypertension and hyperlipidemia.? The patient stated when she woke up this morning she had felt like she had numbness and tingling to her left forearm.? The tingling is from her left upper extremity and and set her finger tips.? The patient has been through physical therapy in the past due to frozen shoulder.? However she has not experienced anything to this degree in the past.? She denies having any COPD.? She denies taking any new medication.? Patient is moving all extremities without difficulty no facial droop no pronator drifting.? Patient has no complaints of any dizziness or headache.? Glucose is 111.? Troponin is negative.? Urine is negative.? Chest x-ray was read as emphysema.? Head CT was read as normal brain no acute intracranial process.? The patient stated that she is not taking any medication to help with the situation.? The study that makes it worse or better.? The patient stated feels as if she is late on that side in arm fell asleep.? The patient is being admitted to observation status on the date of service of 11/11/202211/12: patient seen resting in bed appears well.? She had a difficult night overnight because of her roommate.? She says that she has just minimal tingling to her left hand now.? denies any other neuro symptoms.? She is anxious to leave.? clarifying with Neurology if CTA needs to be completed prior to discharge. ? She will need outpatient EMG nerve conduction study to rule out possible brachial plexopathy. Time Spent with Patient Time attestation: Total time spent providing and/or coordinating discharge services:45 Exam Narrative: General: well-nourished, well-appearing 52-year-old female, sitting up in bed, comfortable, NARD Neuro: awake, alert and oriented x4, speech clear, no focal neuro deficits noted, tingling present to left hand but is resolving HEENMT: normocephalic, atraumatic, EOMI, sclerae anicteric, moist oral mucosa Respiratory: Clear to auscultation bilaterally without crackles, rhonchi or wheezes, nonlabored breathing Cardio: regular rate, regular rhythm with S1-S2 Abdomen: nondistended, normoactive bowel sounds, soft, nontender to palpation Extremities: no edema, erythema, or tenderness to palpation, DP pulses 2+ bilaterally Skin: no
--- NOTE | 2022-11-12 16:06 | PCCCNOTE ---
On 11/12/22, the student, [Marsha Gorman], provided care and completed [facility] documentation on this patient. I have reviewed the student's documentation and agree with the findings.
== END 2022-11-12 15:50 | disposition home or self-care (01) ==
LOC: ANHED 10:08 → ANH3MEDSUR 15:54
PROVIDERS: Nurse Practitioner; Admitting Provider Internal Medicine; Emergency Provider Physician Assistant; PCP Family Medicine; Visit Provider Student in an Organized Health Care Education/Training Program
DX: R20.2 Paresthesia of skin (principal); J43.9 Emphysema, unspecified; E78.2 Mixed hyperlipidemia; K21.9 Gastro-esophageal reflux disease without esophagitis; I10 Essential (primary) hypertension; G54.9 Nerve root and plexus disorder, unspecified; M54.2 Cervicalgia; I65.21 Occlusion and stenosis of right carotid artery; R90.82 White matter disease, unspecified; M75.02 Adhesive capsulitis of left shoulder; Z78.0 Asymptomatic menopausal state; Z87.891 Personal history of nicotine dependence; F10.90 Alcohol use, unspecified, uncomplicated; F12.90 Cannabis use, unspecified, uncomplicated; Z79.51 Long term (current) use of inhaled steroids; Z79.899 Other long term (current) drug therapy; Z82.49 Family history of ischemic heart disease and other diseases of the circulatory system
CPT/HCPCS: 36415; 70450; 70551; 71045; 72156; 80053; 81001; 83735; 84443; 84484; 85025; 85380; 85610; 85730; 93005; 93306; 93880; 96374; 96375; 99285; A9270; A9577; G0378; J2060

== ENCOUNTER 2023-10-21 09:59 | Outpatient (CLI) | payer OTHER, SELFPAY ==
--- NOTE | ~2023-10-21 | MM_ITS ---
EXAMINATION: MM screening geoffrey BI w kia HISTORY: Screening TECHNIQUE: Craniocaudal and mediolateral oblique 3-D tomosynthesis images were obtained and synthetic 2-D images were generated. CAD analysis was submitted and interpreted. COMPARISON: Comparison to multiple prior studies sequentially, with oldest reviewed study dated 04/27. BREAST PARENCHYMAL COMPOSITION: Dense: The breasts are heterogeneously dense, which may obscure small masses FINDINGS: Bilateral breast asymmetries and left breasts architectural distortion are unchanged from p rior examinations. There is no evidence of new suspicious mass, calcification, or architectural disto rtion to suggest malignancy in either breast. There has been no suspicious interval change. IMPRESSION: 1. No mammographic evidence of malignancy. 2. Recommend routine screening mammography in one year. BI-RADS Category 2: Benign finding(s). Reviewed, dictated and finalized at location B.
== END 2023-10-21 10:00 ==
LOC: MICIMG 10:00
PROVIDERS: PCP Family Medicine; Visit Provider Family Medicine
DX: Z12.31 Encounter for screening mammogram for malignant neoplasm of breast (principal)
CPT/HCPCS: 77063; 77067

== ENCOUNTER 2024-06-06 21:37 | Emergency (ER) | payer OTHER, SELFPAY ==
--- OUTSIDE RECORDS SUMMARY | 2024-06-06 21:40 | XMS_ITS | Clinical Summary ---
Author Organization [facility] at the Medical Office Building Address [address] [place] [id number] Care Team Providers Care Magneto Repairer Name Role Phone Mo Perez MD Primary Care Provider [phone] Allergies No known active allergies Medications atenoloL (TENORMIN) 50 mg tablet 3 Active atorvastatin (LIPITOR) 10 mg tablet 3 Active NIFEdipine XL 30 mg 24 hr tablet 3 Active omeprazole (PriLOSEC) 40 mg capsule 3 Active tiZANidine (ZANAFLEX) 2 mg tablet TAKE 1 TABLET BY MOUTH THREE TIMES A DAY NEEDED FOR MUSCLE SPASTICITY 3 Active alendronate (FOSAMAX) 70 mg tablet TAKE 1 TABLET BY MOUTH ONCE WEEKLY 4 Active aspirin 81 mg enteric coated tablet Take 1 tablet (81 mg total) by mouth daily Active Active Problems No known active problems Medical History Medical History Date Comments Hypertension Hypertension Hyperlipidemia Hyperlipidemia Family History Medical History Relation Name Comments Breast cancer Mother's Sister at age 60's Other Other 1 Family history of Pancreatitis; Coronary artery disease Other 2 Fami ly history of Coronary artery disease; Diabetes Other 3 Family history of Diabetes mellitus; Hypertension Other 4 Family history of Hypertension; Colon cancer Neg Hx Ovarian cancer Neg Hx Pancreatic cancer Neg Hx Prostate cancer Neg Hx Uterine cancer Neg Hx Relation Name Status Comments Mother's Sister at age 60's Alive Other 1 Other 2 Other 3 Other 4 Social History Tobacco Use Types Packs/Day Years Used Date Smoking Tobacco: Former Cigarettes Smokeless Tobacco: Never Tobacco Cessation:Counseling Given: Not Answered Alcohol Use Standard Drinks/Week Comments Yes 0 (1 standard drink = 0.6 oz pur e alcohol) Comments No Sex and Gender Information Value Date Recorded Sex Assigned at Not on file 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 Gender Identity Not on file Sexual Orientation Not on file Obstetrics History Para Term AB IAB SAB Ectopic Multiple Livin g Live Births 1 1 1 1 Date Outcome GA Total Labor Labor/2nd/3rd Weight Sex Type Anes PTL Vanessa A1 A5 Name Clin Term Last Filed Vital Signs Vital Sign Reading Time Taken Comments Blood Pressure 124/78 08/01/2023 11:06 AM CDT Pulse 65 12/16/2012 2:43 PM CDT Temperature - - Respiratory Rate - - Oxygen Saturation - - Inhaled Oxygen Concentration - - Weight 66.3 kg (146 lb 3.2 oz) 08/01/2023 11:06 AM CDT Height 167.6 cm (5' 6 ) 08/01/2023 11:06 AM CDT Body Mass Index 23.6 08/01/2023 11:06 AM CDT Plan of Treatment Health Maintenance Due Date Last Done Comments Breast Cancer Screening-Mammogram 1968 Colon Cancer Screening-Colonoscopy 1968 Depression Screening 1968 Hepatitis C Screening 1968 DTaP/Tdap/Td Vaccine (1 - Tdap) 11/10/1979 Hepatitis B Screening 1986 Zoster Vaccine (1 of 2) 2018 Covid-19 Vaccine (4 - 2023-2 5 season) 2023 04/10/2021, 08/08/2020, 07/04/2020 Influenza Vaccine (#1) 2023 Cervical Cancer Screening 07/31/20242023, 08/01/2023, 07/16/2022 Regular Well Visit/Exam 18-64 07/31/2024, 07/16/2022 Pneumococcal vaccine <65 Aged Out No longer eligible based on patient's age to complete this topic Procedures Procedure Name Priority Date/Time Associated Diagnosis Comments HIGH RISK HPV DNA DETECTION WITH GENOTYPING Routine 08/01/2023 12:05 PM CDT Well woman exam with routine gynecological exam from Last 3 Months or Most Recently Relevant to Health Maintenance Results * High Risk HPV DNA Detection with Genotyping (Molecular component) (08/01/2023 12:05 PM CDT) HPV HR 16 Not Detected Not Detected [facility] Comment:Testing performed by : [facility], [address] [place]., [address] HPV HR 18 Not Detected Not Detected [facility] Comment:Testing performed by : [facility], [address] [place]., [address] HPV HR Non 16/18 Not Detected Not Detected [facility] Comment: Interpretive Data Nucleic acid amplification for detection of high-risk Human Papilloma virus (HPV) is performed by the Janice Fabio 6800 HPV test. This assay specifically detects HPV-16 and HPV-18 genotypes. The following HPV genotypes are detected as high-risk HPV: HPV-31, 33, 35, ,39, 45, 51, 52, 56, 58, 59, 66, and 68. This assay has been approved by the [place] Food and Drug Administration for detection of HPV in cervical specimens collected by a physician using an endocervical brush/spatula or cervical broom and placed in the ThinPrep Pap Test PreservCyt collection containers. The performance characteristics of this test have been verified by the [facility] Molecular Infectious Disease laboratory. Correlate with separately reported cytology results, as applicable. Interpretive data last revised 22 Testing performed by: [facility], [address] [place]., [address] Endocervical 08/01/2023 12:0 5 PM CDT 08/01/2023 9:23 PM CDT Narrative [facility] - 08/02/2023 6:02 AM CDT Clinical history and diagnosis->screening Number of vials->1 Testing type->Screening Last menstrual period (date if known)->PM Jaz Lopez MD LAB BODY FLUIDS AND STOOLS ORD ERABLES Final Result [facility] [address] [facility] Department [place] [address] [facility] from Last 3 Months or Most Recently Relevant to Health Maintenance Insurance [employer] H[facility]/PPO Address: [address] [place] [phone] [employer] H[facility]/PPO Address: [address] [place] [address] Care Teams Magneto Repairer Relationship Specialty Start Date End Date Mo Perez MD [facility] [place] [address] PCP - General 12/16/12
--- OUTSIDE RECORDS SUMMARY | 2024-06-06 21:40 | XMS_ITS | Referral Summary ---
Author Organization [facility] Address [address] [place] [address] Care Team Providers Care Information Systems Security Developer Name Role Phone Unavailable Primary Care Provider Unavailabl e Source Comments [facility],non-owned Affiliates and Associated Physician Practices is amultiple site organization consisting of ambulatory clinics and hospital sitesin [place], [place], [place] and [place]. This disclosure is being madepursuant to the Care Everywhere program and may not contain all information available regarding this patient. Last updated 18.[facility] Social History Tobacco Use Types Packs/Day Years Used Date Smoking Tobacco: Never Assessed Sex and Gender Information Value Date Recorded Sex Assigned at Not on file Gender Identity Not on file Sexual Orientation Not on file Plan of Treatment Not on file
--- OUTSIDE RECORDS SUMMARY | 2024-06-06 21:40 | XMS_ITS | Clinical Summary ---
Author Organization [facility] Address [address] [place] [address] Care Team Providers Care Venue Manager Name Role Phone Unavailable Primary Care Provider Unavailabl e Source Comments [facility],non-owned Affiliates and Associated Physician Practices is amultiple site organization consisting of ambulatory clinics and hospital sitesin [place], [place], [place] and [place]. This disclosure is being madepursuant to the Care Everywhere program and may not contain all information available regarding this patient. Last updated 18.[facility] Social History Tobacco Use Types Packs/Day Years Used Date Smoking Tobacco: Never Assessed Sex and Gender Information Value Date Recorded Sex Assigned at Not on file Gender Identity Not on file Sexual Orientation Not on file Plan of Treatment Health Maintenance Due Date Last Done Comments COLOGUARD (AGES 45-75) - COL ON CA SCREENING 1968 COLON MONITORING 1968 COLONOSCOPY - COLON CA SCREENING 1968 CT COLONOGRAPHY - COLON CA SCREENING 1968 Colorectal Cancer Screening 1968 FIT - COLON CA SCREENING 1968 FLEX SIG - COLON CA SCREENING 1968 LIPID TESTING 1968 MAMMOGRAM 1968 PAP SMEAR 1968 HIV SCREENING 11/10/1983 HEPATITIS C SCREENING 11/05/1986 DTAP/TDAP/TD VACCINES (1 - Tdap) 11/10/1987 HEPATITIS B VACCINE (1 of 3 - 19+ 3-dose series) 11/10/1987 PNEUMOCOCCAL VACCINE 50+ (1 of 1 - PCV) 2018 ZOSTER VACCINE (1 of 2) 2018 COVID-19 VACCINE ( - 2023-2 5 season) 2023 INFLUENZA VACCINE (#1) 2023 DEPRESSION SCREENING 04/14/2024 HIB VACCINE Aged Out No longer eligi ble based on patient's age to complete this topic HPV VACCINE Aged Out No longer eligi ble based on patient's age to complete this topic MENINGOCOCCAL (Group B) VACCINE Aged Out No longer eligible based on patient's age to complete this topic MENINGOCOCCAL VACCINE Aged Out No kadie xu eligible based on patient's age to complete this topic PNEUMOCOCCAL VACCINE Aged Out No long er eligible based on patient's age to complete this topic
--- OUTSIDE RECORDS SUMMARY | 2024-06-06 21:40 | XMS_ITS | Referral Summary ---
Author Organization [facility] at the Medical Office Building Address [address] [place] [id number] Care Team Providers Care Promotional Model Name Role Phone Mo Perez MD Primary Care Provider [phone] Allergies No known active allergies Medications atenoloL [...] Active Active Problems No known active problems Social History Tobacco Use Types Packs/Day Years Used Date Smoking Tobacco: Former Cigarettes Smokeless Tobacco: Never Tobacco Cessation:Counseling Given: Not Answered Alcohol Use Standard Drinks/Week Comments Yes 0 (1 standard drink = 0.6 oz pur e alcohol) Comments No Sex and Gender Information Value Date Recorded Sex Assigned at Not on file 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 Gender Identity Not on file Sexual Orientation Not on file Last Filed Vital Signs Vital Sign Reading [...] 08/01/2023 11:06 AM CDT Plan of Treatment Not on file Procedures Procedure Name Priority Date/Time Associated Diagnosis Comments HIGH RISK HPV DNA DETECTION WITH GENOTYPING Routine 08/01/2023 12:05 PM CDT Well woman exam with routine gynecological exam from Last 3 Months or Most Recently Relevant to Health Maintenance Results * High Risk HPV DNA Detection with Genotyping (Molecular component) (08/01/2023 12:05 PM CDT) HPV HR 16 Not Detected Not Detected [facility] Comment:Testing performed by : [facility], [address] [place] [address]., [address] HPV HR 18 Not Detected Not Detected [facility] Comment:Testing performed by : [facility], [address] [place]., [address] HPV HR Non 16/18 Not Detected Not Detected [facility] Comment: Interpretive Data Nucleic acid amplification for [...] this test have been verified by the [facility] Molecular Infectious Disease laboratory. Correlate with separately reported cytology results, as applicable. Interpretive data last revised 22 Testing performed by: [facility], [address] [facility], [address] Endocervical 08/01/2023 12:0 5 PM CDT 08/01/2023 9:23 PM CDT Narrative [facility] - 08/02/2023 6:02 AM CDT Clinical history and diagnosis->screening Number of vials->1 Testing type->Screening Last menstrual period (date if known)->PM Jaz Lopez MD LAB BODY FLUIDS AND STOOLS ORD ERABLES Final Result [facility] [address] [facility] Department [place] [address] [facility] from Last 3 Months or Most Recently Relevant to Health Maintenance Insurance [facility] HMO/PPO Address: [phone] [place] [address] [facility] HMO/PPO Address: [facility] [address] [place] [address] Care Teams Promotional Model Relationship Specialty Start Date End Date Mo Perez MD [address] [place] [address] PCP - General 12/16/12
--- OUTSIDE RECORDS SUMMARY | 2024-06-06 21:40 | XMS_ITS | Patient Health Summary ---
Author Organization [facility] Address [address] [place] [address] Care Team Providers Care Business Intelligence Etl Developer Name Role Phone Unavailable Primary Care Provider Unavailabl e Note from [facility],non-owned Affiliates and Associated Physician Practices is amultiple site organization consisting of ambulatory clinics and hospital sitesin [place], [place], [place] and [place]. This disclosure is being madepursuant to the Care Everywhere program and may not contain all information available regarding this patient. Last updated 18.[facility] Social History Tobacco Use Types Packs/Day Years Used Date Smoking Tobacco: Never Assessed Sex and Gender Information Value Date Recorded Sex Assigned at Not on file Gender Identity Not on file Sexual Orientation Not on file Procedures * GROSS + MICRO EXAM(Performed 03/21/2005) Results * GROSS + MICRO EXAM (03/21/2005 5:54 AM LINE SERVICE ATTENDANT) Result CASE NUMBER [id number] Comment: ORDERING PHYSICIAN EDWIN RUBI SPECIMEN TYPE Placenta Date 03/21/[address] Ferris Gross Description Received in formalin labeled `placenta'. it consists of a placenta weighing 220 gms. and measuring 17 x 15 x 1.7 cm. The membranes are pink, mccormick, wrinkled, semitranslucent and are marginally inserted. There is an eccentrically placed umbilical cord which is located 4.5 cm from the nearest margin. It measures 11 x 1.2 cm. It has three vessels and no false or true knots are seen and a separately received umbilical cord is found measuring 10 x 1.2 cm, it has one false knot and it has three vessels. The surface is blue purple dusky with normal vasculature. The maternal surface is maroon, red, lobular with intact cotyledons. The specimen is serially sectioned no intraparenchymal lesions are seen. Sections are submitted as follows A umbilical cord and membranes B surface C maternal surface. m_/jmc Microscopic Exam Microscopic examination of the umbilical cord shows three vessels with no evidence of funisitis or thrombosis. The chorioamniotic membranes show mild patchy acute inflammatory infiltrate. The chorionic plate shows no pathologic changes. There is no evidence of villitis or infarction. Mature, well vascularized villi with syncytial knots are present. MS/bk Diagnosis I. Placenta, weight 220 grams -- Umbilical cord with three vessels, no pathologic changes. -- Chorioamniotic membranes with mild focal acute chorioamnionitis. MS/bk Information Technology Architect bk Pathologist Drake Johnson M.D. [place]. 03/22/2005 1312 <1> CPT code 60387 MISCELLANEOUS SAMPLES / Unknown 03/21/2005 5:54 AM LINE SERVICE ATTENDANT 03/21/2005 5:54 AM LINE SERVICE ATTENDANT Historical Provider LAB - PATHOLOGY/C YTOLOGY ORDERABLES
[2024-06-06 22:01] VITALS: BP 175/92; PULSE 103; RESP 18; TEMP 36.6; O2SAT 100
--- NOTE | 2024-06-06 22:09 | ECG_ITS ---
Test Date: 2024-06-06 22:16:27 Measurements Intervals [place] Rate: 102 P: 83 CT: 144 QRS: 61 QRSD: 82 T: 73 QT: 333 QTc: 434 Interpretive Statements SINUS TACHYCARDIA WITH OCCASIONAL VENTRICULAR PREMATURE COMPLEXES POSSIBLE LEFT ATRIAL ENLARGEMENT CONSIDER RIGHT VENTRICULAR CONDUCTION DELAY BORDERLINE ST ABNORMALITY- ANTEROLAT/INF LEADS BASELINE ARTIFACT- I, AVR, AVL BORDERLINE ECG No previous ECG available for comparison Electronically Signed On 06-07-2024 06:45:23 MEDICAL STAFFING COORDINATOR by Elder Brooks D.O.
--- NOTE | 2024-06-06 22:25 | PC.NURSE ---
Pt says her oxygen level is ok so she is going to leave and follow up with her primary provider tomorror
--- OUTSIDE RECORDS SUMMARY | 2024-06-06 22:49 | XMS_ITS | Referral Summary ---
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 Correlate with separately reported cytology results, as applicable. Interpretive data last revised 22 Testing performed by: [facility], [address] [facility], [address] Endocervical 08/01/2023 12:0 5 PM CDT 08/01/2023 9:23 PM CDT Narrative [facility] - 08/02/2023 6:02 AM CDT Clinical history and diagnosis->screening Number of vials->1 Testing type->Screening Last menstrual period (date if known)->PM Jaz Lopez MD LAB BODY FLUIDS AND STOOLS ORD ERABLES Final Result [facility] [address] [facility] Department [place] [address] [facility] from Last 3 Months or Most Recently Relevant to Health Maintenance Insurance CHO[employer]US CHO[employer] PL[employer] Care Teams Telecommunications Linesworker Relationship Specialty Start Date End Date Mo Perez MD [address] [place] [address] PCP - General 12/16/12
--- OUTSIDE RECORDS SUMMARY | 2024-06-06 22:50 | XMS_ITS | Clinical Summary ---
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 Correlate with separately reported cytology results, as applicable. Interpretive data last revised 22 Testing performed by: [facility], [address] [place]., [address] Endocervical 08/01/2023 12:0 5 PM CDT 08/01/2023 9:23 PM CDT Narrative [facility] - 08/02/2023 6:02 AM CDT Clinical history and diagnosis->screening Number of vials->1 Testing type->Screening Last menstrual period (date if known)->PM Jaz Lopez MD LAB BODY FLUIDS AND STOOLS ORD ERABLES Final Result [facility] [address] [facility] Department [place] [address] [facility] from Last 3 Months or Most Recently Relevant to Health Maintenance Insurance CHOICE PLUS CHOICE PLUS Care Teams Loom Inspector Relationship Specialty Start Date End Date Mo Perez MD [facility] [place] [address] PCP - General 12/16/12
--- OUTSIDE RECORDS SUMMARY | 2024-06-06 22:50 | XMS_ITS | Referral Summary ---
Author Organization [facility] Address [address] [place] [address] Care Team Providers Care Development Technologist Name Role Phone Unavailable Primary Care Provider Unavailabl e Source Comments [facility],non-owned Affiliates and Associated Physician Practices is amultiple site organization consisting of ambulatory clinics and hospital sitesin [place], [place] and [place]. This disclosure is being madepursuant to the Care Everywhere program and may not contain all information available regarding this patient. Last updated 18.[facility] Social History Tobacco Use Types Packs/Day Years Used Date Smoking Tobacco: Never Assessed Sex and Gender Information Value Date Recorded Sex Assigned at Not on file Gender Identity Not on file Sexual Orientation Not on file Plan of Treatment Not on file
--- OUTSIDE RECORDS SUMMARY | 2024-06-06 22:50 | XMS_ITS | Patient Health Summary ---
Author Organization [facility] Address [address] [place] [address] Care Team Providers Care Director Of Food And Beverage Services Name Role Phone Unavailable Primary Care Provider Unavailabl e Note from [facility],non-owned Affiliates and Associated Physician Practices is amultiple site organization consisting of ambulatory clinics and hospital sitesin [place], [place], [place] and [place]. This disclosure is being madepursuant to the Care Everywhere program and may not contain all information available regarding this patient. Last updated 18.[facility] Social History Tobacco Use Types Packs/Day Years Used Date Smoking Tobacco: Never Assessed Sex and Gender Information Value Date Recorded Sex Assigned at Not on file Gender Identity Not on file Sexual Orientation Not on file Procedures * GROSS + MICRO EXAM(Performed 03/21/2005) Results * GROSS + MICRO EXAM (03/21/2005 5:54 AM INSTRUCTIONAL MATERIAL DIRECTOR) Result CASE NUMBER [id number] Comment: ORDERING PHYSICIAN EDWIN RUBI SPECIMEN TYPE [...] membranes with mild focal acute chorioamnionitis. MS/bk Lead Generation Representative bk Pathologist Drake Johnson M.D. [place]. 03/22/2005 1312 <1> CPT code 15652 MISCELLANEOUS SAMPLES / Unknown 03/21/2005 5:54 AM INSTRUCTIONAL MATERIAL DIRECTOR 03/21/2005 5:54 AM INSTRUCTIONAL MATERIAL DIRECTOR Historical Provider LAB - PATHOLOGY/C YTOLOGY ORDERABLES
--- OUTSIDE RECORDS SUMMARY | 2024-06-06 22:50 | XMS_ITS | Clinical Summary ---
Author Organization [facility] Address [address] [place] [address] Care Team Providers Care Building Mover Name Role Phone Unavailable Primary Care Provider Unavailabl e Source Comments [facility],non-owned Affiliates and Associated Physician Practices is amultiple site organization consisting of ambulatory clinics and hospital sitesin [place], [place], [place] and [place]. This disclosure is being madepursuant to the Care Everywhere program and may not contain all information available regarding this patient. Last updated 18.[facility] Social History Tobacco Use Types Packs/Day Years [...]
== END 2024-06-06 23:36 | disposition left against medical advice (07) ==
LOC: ANHED 22:48
PROVIDERS: Emergency Provider Student in an Organized Health Care Education/Training Program; PCP Family Medicine
DX: R06.02 Shortness of breath (principal)
CPT/HCPCS: 93005; 99199

== ENCOUNTER 2024-06-21 11:11 | Outpatient (CLI) | payer OTHER, SELFPAY ==
--- NOTE | ~2024-06-21 | CT_ITS ---
CT Scan of the Chest without Contrast: Clinical Indication: Lung cancer screening, nicotine dependence Technique: Contiguous sections were acquired throughout the chest without intravenous contrast. Dose reduction technique was used on this scan by utilizing automated exposure control and iterative recon struction technique. The dose-length product (DLP) was 48.50 mGy-cm. COMPARISON: 04/11/2022 Findings: There is no evidence of any significant mediastinal, hilar or axillary lymphadenopathy. The mediastin al soft tissues appear normal. There is no evidence of pleural or pericardial effusion. Stable pleural-based 4 mm nodule right middle lobe (axial image 80). Several additional tiny millimet pati nodules are present, unchanged.. Moderate emphysema. Images through the upper abdomen reveal no abnormalities. Impression: Lung RADS 2: Benign appearance. 12 month follow-up screening CT advised. Moderate emphysema. Reviewed, dictated and finalized at location . Impression: Lung RADS 2: Benign appearance. 12 month follow-up screening CT advised. Moderate emphysema.
== END 2024-06-21 11:12 | disposition home or self-care (01) ==
LOC: MICIMG 11:11
PROVIDERS: PCP Physician Assistant; Visit Provider Family Medicine
DX: Z12.2 Encounter for screening for malignant neoplasm of respiratory organs (principal); J43.9 Emphysema, unspecified; Z87.891 Personal history of nicotine dependence
CPT/HCPCS: 71271

== ENCOUNTER 2024-10-25 11:31 | Outpatient (CLI) | payer OTHER, SELFPAY ==
--- NOTE | ~2024-10-25 | MM_ITS ---
EXAMINATION: MM screening geoffrey BI w kia HISTORY: Screening TECHNIQUE: Craniocaudal and mediolateral oblique 3-D tomosynthesis images were obtained and synthetic 2-D images were generated. CAD analysis was submitted and interpreted. COMPARISON: Comparison to multiple prior studies sequentially, with oldest reviewed study dated 12/30. BREAST PARENCHYMAL COMPOSITION: Not dense: There are scattered areas of fibroglandular density. FINDINGS: There is no evidence of suspicious mass, calcification, or architectural distortion to sugg est malignancy in either breast. There has been no suspicious interval change. IMPRESSION: 1. No mammographic evidence of malignancy. 2. Recommend routine screening mammography in one year. BI-RADS Category 1: Negative Reviewed, dictated and finalized at location B.
== END 2024-10-25 11:32 | disposition home or self-care (01) ==
LOC: MICIMG 11:34
PROVIDERS: PCP Family Medicine; Visit Provider Family Medicine
DX: Z12.31 Encounter for screening mammogram for malignant neoplasm of breast (principal)
CPT/HCPCS: 77063; 77067

== ENCOUNTER 2025-01-25 11:29 | Outpatient (CLI) | payer OTHER, SELFPAY ==
--- NOTE | ~2025-01-25 | DEXA_ITS ---
Bone Density Report Name: ALPESH PEREZ Age: 54 Sex: Female Ethnicity: White Date of : 1970 Indication: postmenopausal osteoporosis; monitoring treatment; height loss; asthma or emphysema; Referring Provider: IVAN TANG Study: Bone densitometry was performed. Exam Date: January 25, 2025 Accession number: [id number] Bone Density: Region BMD T-score Z-score Classification AP Spine(L1-L4) 0.615 -3.9 -2.8 Osteoporosis Femoral Neck (Left) 0.536 -2.8 -1.7 Osteoporosis Total Hip (Left) 0.617 -2.7 -1.9 Osteoporosis Femoral Neck (Right) 0.480 -3.3 -2.2 Osteoporosis Total Hip (Right) 0.575 -3.0 -2.3 Osteoporosis Total Hip Mean 0.596 -2.9 -2.1 Osteoporosis World Health Organization criteria for BMD impression classify patients as: Normal (T-score at or above -1.0), Osteopenia (T-score between -1.0 and -2.5), or Osteoporosis (T-score at or below -2.5). 10-year Fracture Risk: FRAX not reported because: Some T-score for Spine Total or Hip Total or Femoral Neck at or below -2.5 Treated for osteoporosis Previous Exams: -- Region Exam Age BMD T-score BMD Change BMD Change Date g/cm2 vs Baseline vs Previous -- AP Spine (L1-L4) 01/25/2025 54 0.615 -3.9 -9.5%# -9.5%# 03/19/2022 51 0.680 -3.3 Total Hip(Left) 01/25/2025 54 0.617 -2.7 -6.8%* -6.8%* 03/19/2022 51 0.662 -2.3 Total Hip(Right) 01/25/2025 54 0.575 -3.0 -6.3%* -6.3%* 03/19/2022 51 0.613 -2.7 -- *Denotes significance at 95% confidence level, LSC for AP Spine = 0.022 g/cm2, LSC for Total Hip = 0.027 g/cm2 # Denotes dissimilar scan types or analysis methods Clinical Information Provided by Patient: Has 3 or more alcoholic drinks per day Is being treated for osteoporosis Has used the following medications: Fosamax (i.e. alendronate), Vitamin D Has the following medical conditions: Asthma or Emphysema Patient maximum height was 66 Menopause Age: 46 No regular weight bearing exercise Drinks caffeinated beverages Onset of menses at age 10 Number of children 1 Missed period for more than 6 months in a row Impression: The patient has osteoporosis, based on the Total Spine T-score. The patient has risk factors, including: excessive alcohol use. The BMD for the Total Hip(Left) decreased, changing by -6.8% since the last DXA exam. The BMD for the Total Hip(Right) decreased, changing by -6.3% since the last DXA exam. Discussion: SIGNIFICANT BONE LOSS OBSERVED. Adherence to therapy (including calcium and vitamin D intake) should be assessed. If compliance is not a factor, review management and exclusion of secondary causes of bone loss. It is important to ask patients whether they are taking their medications and to encourage continued and appropriate compliance with their osteoporosis therapies to reduce fracture risk. It is also important to review their risk factors and encourage appropriate calcium and vitamin D intakes, exercise, fall prevention and other lifestyle measures. Follow-Up: Consider a repeat BMD and Vertebral Fracture Assessment (VFA) exam in 2 years or sooner if medically necessary, to reassess this patient's status. Reported by: JOSE on 01/25/2025 11:52:00 AM. Reviewed, dictated and finalized at location A.
== END 2025-01-25 11:30 | disposition home or self-care (01) ==
LOC: MICIMG 11:29
PROVIDERS: PCP Family Medicine; Visit Provider Physician Assistant Medical
DX: M81.0 Age-related osteoporosis without current pathological fracture (principal)
CPT/HCPCS: 77080